=== PATIENT | female | born 2000 | race African-American/Black ===

== ENCOUNTER 2021-01-30 18:46 | Emergency (ER) | payer SELFPAY ==
[~2021-01-30] VITALS: Ht 162.6 cm; Wt 63.5 kg
[2021-01-30] MEDS ORDERED: SODIUM CHLORIDE 0.9% 1,000 ML IV ONE (19:45)
[2021-01-30] MEDS ORDERED: ONDANSETRON HCL 4 MG/2 ML VIAL IV ONE (19:45)
[2021-01-30] MEDS ORDERED: fentaNYL CITRATE 100 MCG/2 ML VL IV ONE (19:45)
[2021-01-30 20:12] VITALS: BP 123/71
[2021-01-30] MEDS ORDERED: ONDANSETRON HCL 4 MG/2 ML VIAL ONE (20:15)
== END 2021-01-30 21:14 | disposition left against medical advice (07) ==
LOC: EDBD 18:46 → ER 18:48
DX: R10.9 Unspecified abdominal pain (principal); Z94.4 Liver transplant status
CPT/HCPCS: 96361; 96374; 96375; 99284; J2405; J3010; J7030